=== PATIENT | male | born 1960 | race African-American/Black ===

== ENCOUNTER 2016-09-24 07:38 | Emergency (ER) | payer OTHER ==
[~2016-09-24] VITALS: Ht 182.9 cm; Wt 114.8 kg
--- NOTE | ~2016-09-24 | EKG ---
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
[~2016-09-24 07:38] MED LIST: ERYTHROMYCIN E3.5 G1 OP; LISINOPRIL5 MG PO; METFORMIN; PROVENTIL17 G1 IH; TRAMADOL 50 MG50 MG PO
[2016-09-24 08:17] LABS: ABSOLUTE NEUTROPHILS 7.2 thou/uL (1.4-8.2); EOSINOPHILS 2.8 % (0.0-3.0); HEMOGLOBIN 15.4 gm/dL (14.0-18.0); LYMPHOCYTES 14.4 % (24.0-44.0); MCH 31.5 pg (26.0-34.0); MCHC 34.1 g/dL (28.0-37.0); MCV 92.4 fL (80.0-100.0); MONOCYTES 8.4 % (1.0-8.0); PLATELET COUNT 199 thou/uL (150-400); POLYS 73.4 % (36.0-66.0); RBC 4.87 mil/uL (4.50-6.00); RDW 13.2 % (10.5-14.5); WBC 9.9 thou/uL (4.0-11.0)
[2016-09-24 08:25] LABS: MANUAL DIFF NO
[2016-09-24 08:30] LABS: ANION GAP 10 mmol/L (7-16); BUN 18 mg/dL (7-18); CALCIUM 9.1 mg/dL (8.5-10.1); CHLORIDE 98 mmol/L (98-107); CO2 25 mmol/L (21-32); CREATININE 1.5 mg/dL (0.7-1.3); GLUCOSE 389 mg/dL (74-106); POTASSIUM 4.7 mmol/L (3.5-5.1); SODIUM 133 mmol/L (136-145)
[2016-09-24 08:31] LABS: URINE BILIRUBIN NEGATIVE (Negative); URINE BLOOD 3+ (Negative); URINE COLOR YELLOW; URINE GLUCOSE-RANDOM* 3+ (Negative); URINE KETONES NEGATIVE (Negative); URINE LEUKOCYTES-REFLEX NEGATIVE (Negative); URINE PROTEIN (DIPSTICK) TRACE (Negative); URINE UROBILINOGEN 0.2 E.U./dl (0.2-1.0)
[2016-09-24 08:37] LABS: ALBUMIN 3.8 g/dL (3.4-5.0); ALKALINE PHOSPHATASE 89 U/L (46-116); SGOT 15 U/L (15-37); SGPT 24 U/L (30-65); TOTAL BILIRUBIN 0.7 mg/dL (<0.1-1.0); TOTAL PROTEIN 8.1 g/dL (6.4-8.2); TROPONIN-I < 0.04 ng/mL (<0.04-0.07)
[2016-09-24 08:51] LABS: CASTS None Seen /LPF (None Seen); CRYSTALS None Seen /LPF (None Seen); SQUAMOUS 0-3 Few /LPF (0-3)
[2016-09-24 08:52] LABS: URINE RBC >20 Many /HPF (0-2); URINE WBC-REFLEX 0-5 Rare /HPF (0-5)
[2016-09-24 10:25] VITALS: BP 142/88
[2016-09-24] MEDS ORDERED: METFORMIN HCL500 MG PO (10:38)
[2016-09-24] MEDS ORDERED: GLUCOTROL5 MG PO (10:39)
[2016-09-24] MEDS ORDERED: LOVASTATIN 20 M20 MG PO (10:39)
[2016-09-24] MEDS ORDERED: FLOMAX0.4 MG PO (10:41)
[2016-09-24] MEDS ORDERED: NORCO 5-325 TA1 EACH PO (10:41)
[2016-09-24] MEDS ORDERED: TORADOL 10 MG T10 MG PO (10:41)
== END 2016-09-24 11:11 | disposition home or self-care (01) ==
LOC: ER 07:38
PROVIDERS: Emergency Medicine
DX: N20.0 Calculus of kidney (principal); E11.9 Type 2 diabetes mellitus without complications; I10 Essential (primary) hypertension; G89.29 Other chronic pain; F17.210 Nicotine dependence, cigarettes, uncomplicated; F10.99 Alcohol use, unspecified with unspecified alcohol-induced disorder; Z88.5 Allergy status to narcotic agent

== ENCOUNTER 2020-12-24 13:29 | Emergency (ER) | payer OTHER ==
[~2020-12-24] VITALS: Ht 182.9 cm; Wt 117.0 kg
[~2020-12-24 13:29] MED LIST changes: +ASPIRIN325 PO; +DIGOXIN250 MCG PO; +FLOMAX0.4 MG PO; +GLUCOTROL5 MG PO; +LOVASTATIN 20 M20 MG PO; +METFORMIN HCL500 MG PO; +NORCO 5-325 TA1 EACH PO; +PEPCID20 MG PO; +TOPROL XL100 MG PO; +TORADOL 10 MG T10 MG PO
[2020-12-24 14:30] LABS: ABSOLUTE NEUTROPHILS 6.4 thou/uL (1.4-8.2); BASOPHILS 1.3 % (0.0-2.0); EOSINOPHILS 3.3 % (0.0-3.0); HEMATOCRIT 42.8 % (42.0-52.0); MCH 30.2 pg (26.0-34.0); MCHC 32.8 g/dL (28.0-37.0); MCV 92.1 fL (80.0-100.0); MONOCYTES 8.1 % (1.0-8.0); PLATELET COUNT 203 thou/uL (150-400); POLYS 75.3 % (36.0-66.0); RBC 4.65 mil/uL (4.50-6.00); RDW 15.3 % (10.5-14.5); WBC 8.5 thou/uL (4.0-11.0)
[2020-12-24 14:38] LABS: CALCIUM 8.6 mg/dL (8.5-10.1); CREATININE 1.3 mg/dL (0.7-1.3); POTASSIUM 4.4 mmol/L (3.5-5.1)
[2020-12-24 14:47] LABS: APTT 31.8 Seconds (24.5-32.8); INR 1.3
[2020-12-24] MEDS ORDERED: CARDIZEM CD120 MG PO (16:29)
[2020-12-24 16:44] VITALS: BP 127/89
--- NOTE | 2020-12-25 09:22 | EKG ---
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 : 1960 Requested By: Rolo Pal Order Number: [id number] MD: Mendez Walter Measurements Intervals [place] Rate: 124 P: 259 ME: 220 QRS: -29 QRSD: 177 T: 60 QT: 336 QTc: 483 Interpretive Statements Sinus or ectopic atrial tachycardia Ventricular premature complex Prolonged ME interval IVCD, consider atypical RBBB Baseline wander in lead(s) II,III,aVF Compared to ECG 12/01/2017 11:41:52 Ventricular premature complex(es) now present First degree AV block now present Atrial flutter no longer present AV block, advanced (high-grade) no longer present Electronically Signed On 12-25-2020 9:22:23 CDT by Mendez Walter [email or web address] <ELECTRONICALLY SIGNED> By: Mendez Walter MD, FAC 12/25/20 0922 1335 34 Mendez Walter MD, [facility] /EPI
== END 2020-12-24 16:49 | disposition home or self-care (01) ==
LOC: ER 13:29
PROVIDERS: Nurse Practitioner
DX: I48.20 Chronic atrial fibrillation, unspecified (principal); J45.909 Unspecified asthma, uncomplicated; E11.9 Type 2 diabetes mellitus without complications; F17.210 Nicotine dependence, cigarettes, uncomplicated; Z98.890 Other specified postprocedural states; Z87.442 Personal history of urinary calculi; Z79.82 Long term (current) use of aspirin; Z79.899 Other long term (current) drug therapy; Z79.84 Long term (current) use of oral hypoglycemic drugs; Z88.5 Allergy status to narcotic agent; Z88.0 Allergy status to penicillin